=== PATIENT | male | born 1985 | race Caucasian/White ===

== ENCOUNTER 2025-02-14 10:28 | Observation (INO) ==
[2025-02-14 11:52] LABS: Basophils # (auto) 0.04 K/uL (0.00-0.20); Basophils % (auto) 0.3 %; Eosinophils # (auto) 0.32 K/uL (0.00-0.50); Eosinophils % (auto) 2.5 %; Hematocrit (blood only) 40.9 % (42.0-52.0); Hemoglobin 14.1 g/dl (14.0-18.0); Immature Granulocytes # (auto) 0.06 K/uL (0.01-0.20); Immature Granulocytes % (auto) 0.5 %; Lymphocytes # (auto) 2.19 K/uL (1.20-3.40); Lymphocytes % (auto) 17.3 %; Mean Corpuscular Hemoglobin 29.7 pg (25.0-34.0); Mean Corpuscular Hgb Conc 34.5 g/dL (32.0-36.0); Mean Corpuscular Volume 86.1 fL (80.0-100.0); Mean Platelet Volume 9.2 fL (9.4-12.4); Monocytes # (auto) 1.13 K/uL (0.11-0.59); Monocytes % (auto) 8.9 %; Neutrophils # (auto) 8.93 K/uL (1.40-6.50); Neutrophils % (auto) 70.5 %; Platelet Count 293 K/uL (130-400); RDW Coefficient of Variation 12.6 % (11.5-14.5); RDW Standard Deviation 39.3 fL (36.4-46.3); Red Blood Count 4.75 M/uL (4.70-6.10); White Blood Count 12.67 K/ul (4.8-10.8)
[2025-02-14 12:15] LABS: Albumin Globulin Ratio 1.6 (0.9-2); BUN Creatinine Ratio 12.1 (10-20); Bilirubin,Total 0.6 mg/dl (0.2-1.0); Calcium 9.9 mg/dl (8.6-10.3); Globulin 3.1 gm/dl (2.5-4.0); Potassium 4.2 mmol/L (3.5-5.1); Total Protein 8.1 gm/dl (6.0-8.3)
[2025-02-14] MEDS: OPTIRAY 320 100ml IV ONE (12:34)
--- NOTE | 2025-02-14 12:53 | CT Scan Report ---
CT pelvis w/IV con only CLINICAL HISTORY: Perirectal abscess. COMPARISON STUDY: No previous studies for comparison. TECHNIQUE: Axial images of the pelvis were obtained following intravenous injection of 94 cc of Optir ay 320 IV. Sagittal and coronal reformats were viewed. A dose lowering technique was utilized adherin g to the principles of ALARA. FINDINGS: There is a 1.6 x 1.4 x 1 cm rim-enhancing fluid collection within the medial fold of the ri ght buttock. There is moderate adjacent stranding and associated skin thickening. No soft tissue gas is present. This is suggestive of a right perianal fistula with abscess formation. No additional flui d collections are present. No supralevator abnormality is present. Caliber and wall thickness of visu alized small and large bowel are normal. The appendix is normal. There is no pelvic lymphadenopathy. No vascular abnormalities are identified by CT probable IMPRESSION: 1.6 x 1.4 x 1 cm rim-enhancing fluid collection within the medial fold of the right butt ock. This is suggestive of a right perianal fistula with abscess formation. Associated cellulitis. No additional fluid collections. ACT 112: Negative or not required by law. Electronically signed by: Jeffrey Bedolla M.D. 02/14/2025 12:51 PM
--- NOTE | 2025-02-14 14:02 | History & Physical Report ---
Date of Service February 14, 2025 Assessment & Plan (1) Perianal abscess: (2) Perianal fistula: Plan: 39 yo male with 3 day history of perirectal pain and swelling. History of I&D of right perirectal abscess in 2021. No blood in stools. CT scan with small 1.6 cm perianal abscess with associated cellulitis and question of possible fistula. Exam consistent with right buttock abscess with associated cellulitis extending to the perineum. Small indurated area of 2 cm. Not a lot of fluctuance. Discussed with patient given ct scan findings, recurrence and questions of possible fistula, we would recommend I&D in operating room. Will get him admitted start on IV cipro and flagyl , pain management as needed, antiemetics as needed, clear liquid diet for dinner and npo after midnight. Discussed with Dr. Riley who agrees with above. Plan Will admit patient to hospital and start on IV antibiotics given abscess and associated cellulitis History of Present Illness Chief Complaint: perirectal pain Primary Care Provider: NO PCP Trent is a 39 yo male who presented to ED with complaint of increasing perirectal pain. History of prior perirectal abscess drained at bedside at [facility] in 2021, abscess measured 3 x 4 cm at that time. States he started noticing some swelling and pain in the perirectal area Friday after some diarrhea. Night sweats but no fevers. No nausea or vomiting. Bowels have been loose no blood. No history of mucous or blood in stools. Has not had a colonoscopy. Allergies Allergy/AdvReac Type Severity Reaction Status Date / Time No Known Allergies Allergy Unverified 02/14/25 13:19 Home Medications Medication Instructions Recorded Confirmed Type Multi Mushrooms Supplement 1 cap PO DAILY 02/14/25 02/14/25 History guaifenesin 600 mg tablet, 600 mg PO TID PRN Congestion 02/14/25 02/14/25 History extended release 12 hr (Mucinex) Past Med/Surg History Problem List (Updated 02/14/25 @ 14:02 by Soco Chavis PA-C) Perianal fistula Perianal abscess Social History Smoking Status: Never smoker Feels Safe at Home: Yes Review of Systems Review of Systems: All systems reviewed & are unremarkable except as noted in HPI & below Physical Exam Constitutional: WD/WN, vitals as above cooperative and comfortable; no acute distress and not ill appearing Respiratory: normal respiratory effort, lungs clear to auscultation Cardiovascular: RRR, no murmur, no edema Gastrointestinal (Abdomen): Inspection/Auscultation: abdomen normal to inspection; abdomen not distended Percussion/Palpation: abdomen soft; abdomen nontender, no guarding and abdomen not rigid Right perianal abscess with induration and moderate cellulitis. minimal fluctuance on exam. External anal exam without fissure or visible fistula. no active drainage. Mildly tender to palpation. Skin: no rashes, warm and dry Psychiatric: A+Ox3, euthymic affect Results & Data Results & Data Vital Signs (Past 12 Hours) Vital Signs Temp Pulse Pulse Resp BP BP Pulse Ox 02/14/25 12:46 83 16 150/92 H 98 02/14/25 10:38 37 C 105 H 18 143/88 H 96 O2 Del Method 02/14/25 12:46 Room Air 02/14/25 10:38 Room Air Laboratory Results 02/14/25 Range/Units 11:25 WBC 12.67 H (4.8-10.8) K/ul RBC 4.75 (4.70-6.10) M/uL Hgb 14.1 (14.0-18.0) g/dl Hct 40.9 L (42.0-52.0) % MCV 86.1 (80.0-100.0) fL MCH 29.7 (25.0-34.0) pg MCHC 34.5 (32.0-36.0) g/dL RDW Std Deviation 39.3 (36.4-46.3) fL RDW Coeff of Alyssa 12.6 (11.5-14.5) % Plt Count 293 (130-400) K/uL MPV 9.2 L (9.4-12.4) fL Immature Gran % (Auto) 0.5 % Neut % (Auto) 70.5 % Lymph % (Auto) 17.3 % [place] % (Auto) 8.9 % Eos % (Auto) 2.5 % Baso % (Auto) 0.3 % Neut # (Auto) 8.93 H (1.40-6.50) K/uL Lymph # (Auto) 2.19 (1.20-3.40) K/uL [place] # (Auto) 1.13 H (0.11-0.59) K/uL Eos # (Auto) 0.32 (0.00-0.50) K/uL Baso # (Auto) 0.04 (0.00-0.20) K/uL Immature Gran # (Auto) 0.06 (0.01-0.20) K/uL Sodium 135 L (136-145) mmol/L Potassium 4.2 (3.5-5.1) mmol/L Chloride 102 (98-107) mmol/L Carbon Dioxide 27 (21-32) mmol/L Anion Gap 6 (3-11) BUN 13 (6-23) mg/dl Creatinine 1.07 (0.6-1.4) mg/dl Est Cr Clr Drug Dosing 117.0 ml/min eGFR 90.53 BUN/Creatinine Ratio 12.1 (10-20) Glucose 101 H (70-99(Fasting)) mg/dl Calcium 9.9 (8.6-10.3) mg/dl Total Bilirubin 0.6 (0.2-1.0) mg/dl AST 24 (13-39) U/L ALT 58 H (7-52) U/L Alkaline Phosphatase 61 (34-104) U/L Total Protein 8.1 (6.0-8.3) gm/dl Albumin 5.0 (3.4-5.0) gm/dl Globulin 3.1 (2.5-4.0) gm/dl Albumin/Globulin Ratio 1.6 (0.9-2) Diagnostic Findings CT pelvis w/IV con only CLINICAL HISTORY: Perirectal abscess. COMPARISON STUDY: No previous studies for comparison. TECHNIQUE: Axial images of the pelvis were obtained following intravenous injection of 94 cc of Optiray 320 IV. Sagittal and coronal reformats were viewed. A dose lowering technique was utilized adhering to the principles of ALARA. FINDINGS: There is a 1.6 x 1.4 x 1 cm rim-enhancing fluid collection within the medial fold of the right buttock. There is moderate adjacent stranding and associated skin thickening. No soft tissue gas is present. This is suggestive of a right perianal fistula with abscess formation. No additional fluid collections are present. No supralevator abnormality is present. Caliber and wall thickness of visualized small and large bowel are normal. The appendix is normal. There is no pelvic lymphadenopathy. No vascular abnormalities are identified by CT probable IMPRESSION: 1.6 x 1.4 x 1 cm rim-enhancing fluid collection within the medial fold of the right buttock. This is suggestive of a right perianal fistula with abscess formation. Associated cellulitis. No additional fluid collections. Code Status & VTE Plan VTE Prophylaxis Plan VTE Prophylaxis will be ordered: Yes
[2025-02-14] MEDS: ACETAMINOPHEN 1,000 MG/100 ML VIAL IV STA (14:04)
--- NOTE | 2025-02-14 15:00 | Emergency Department Note ---
Impression & Plan Perianal abscess, Perianal fistula ED Provider Note NAME: LATOYA Downs NOTESTINE AGE: 39 SEX: M : 1985 ARRIVES VIA: Walk-In INFORMANT: Patient, ED PROVIDER(S): Sheridan Navarrete MD CHIEF COMPLAINT: Fistula, abscess HPI: This is a 39-year-old male presenting for fistula/abscess. Patient notes that about 3 years ago he had a similar incident happening when she had a fistula develop in the peritoneal space. He required a procedure at bedside by general surgeon. He notes that this pain feels very similar. Started last night. He thinks it is filling up with fluid. Notes is painful to sit down removed. No fevers or chills. ROS: See above HPI for pertinent positives & negatives. A total of 10 systems reviewed and were otherwise negative. PAST MEDICAL HISTORY: See Below PAST SURGICAL HISTORY: See Below FAMILY HISTORY: See Below SOCIAL HISTORY: See Below HOME MEDICATIONS: See Below ALLERGIES: See Below VITALS: See Below PHYSICAL EXAMINATION: General: resting comfortably in no acute distress Head: Normocephalic and atraumatic Eyes: Normal inspection, extraocular muscles intact Ear, nose, throat: Normal external exam Neck: Normal range of motion Respiratory: speaking in full sentences, symmetric chest rise, no respiratory distress Cardiovascular: Regular rate/rhythm : Slight right-sided perirectal erythema/fluctuance Extremities: moves all extremities Neuro: The patient awake and alert, appropriately conversive, symmetric faces, no focal deficits MEDICAL DECISION MAKING: This is a 39-year-old male presenting for perirectal fistula/abscess. -Patient blood work reveals a slight leukocytosis 12.67. No signs of sepsis on vital signs otherwise. -Patient CT imaging does reveal a perianal fistula/abscess. -Discussed care with SUMANTH Garnett for general surgery who will admit the patient to their service for possible operative procedure tomorrow. -Patient admitted to surgical service Differential diagnosis: Perirectal, perianal fistula/abscess, cellulitis Diagnostics interpreted by me: ECG: None Cardiac Monitoring: An order was placed for continuous cardiac monitoring. The monitor shows a rate of 79 with sinus rhythm. Past Med/Surg History Problem List (Updated 02/14/25 @ 19:40 by Sheridan Navarrete MD) Perianal fistula (Acute) Perianal abscess (Acute) Social History Smoking Status: Never smoker Hx Alcohol Use: No Hx Substance Use: No Preferred Language: Croatian Communication Ability: Effective Electrician Ship Required: No Beliefs That Will Affect Care: None Current Living Situation: Family Other Information That Helps Us Care for You: No Feels Safe at Home: Yes Safety Concerns: Feels Safe At This Time Assistive Devices: Glasses Allergies Allergies Allergy/AdvReac Type Severity Reaction Status Date / Time No Known Allergies Allergy Unverified 02/14/25 13:19 Home Meds Home Medications Medication Instructions Recorded Confirmed Multi Mushrooms Supplement 1 cap PO DAILY 02/14/25 02/14/25 guaifenesin 600 mg tablet, 600 mg PO TID PRN Congestion 02/14/25 02/14/25 extended release 12 hr (Mucinex) Results & Data (ED) Vital Signs Vital Signs - 24 hr 02/14/25 10:38 02/14/25 12:46 02/14/25 14:06 Temperature 37 C Temperature Source Temporal Artery Scan Pulse Rate 105 H Pulse Rate [Right Finger] 83 88 Respiratory Rate 18 16 18 Respiratory Effort / Characteristics Non-Labored Non-Labored Spontaneous Non-Labored Spontaneous Respiratory Depth Normal Normal Normal Respiratory Pattern Regular Regular Regular Blood Pressure 143/88 H Blood Pressure [Right Arm] 150/92 H 140/84 Blood Pressure Mean 106 Blood Pressure Mean [Right Arm] 111 102 Pulse Oximetry 96 98 97 Oxygen Delivery Method Room Air Room Air Room Air Sepsis Recent Fever Within 48 Hours No Sepsis New/Unexplained Change in Mental Status N/A Sepsis Action Taken by Nursing No Action Required Laboratory Data 02/14/25 11:25 02/14/25 11:25 Lab Results 02/14/25 Range/Units 11:25 WBC 12.67 H (4.8-10.8) K/ul RBC 4.75 (4.70-6.10) M/uL Hgb 14.1 (14.0-18.0) g/dl Hct 40.9 L (42.0-52.0) % MCV 86.1 (80.0-100.0) fL MCH 29.7 (25.0-34.0) pg MCHC 34.5 (32.0-36.0) g/dL RDW Std Deviation 39.3 (36.4-46.3) fL RDW Coeff of Alyssa 12.6 (11.5-14.5) % Plt Count 293 (130-400) K/uL MPV 9.2 L (9.4-12.4) fL Immature Gran % (Auto) 0.5 % Neut % (Auto) 70.5 % Lymph % (Auto) 17.3 % [place] % (Auto) 8.9 % Eos % (Auto) 2.5 % Baso % (Auto) 0.3 % Neut # (Auto) 8.93 H (1.40-6.50) K/uL Lymph # (Auto) 2.19 (1.20-3.40) K/uL [place] # (Auto) 1.13 H (0.11-0.59) K/uL Eos # (Auto) 0.32 (0.00-0.50) K/uL Baso # (Auto) 0.04 (0.00-0.20) K/uL Immature Gran # (Auto) 0.06 (0.01-0.20) K/uL Sodium 135 L (136-145) mmol/L Potassium 4.2 (3.5-5.1) mmol/L Chloride 102 (98-107) mmol/L Carbon Dioxide 27 (21-32) mmol/L Anion Gap 6 (3-11) BUN 13 (6-23) mg/dl Creatinine 1.07 (0.6-1.4) mg/dl Est Cr Clr Drug Dosing 117.0 ml/min eGFR 90.53 BUN/Creatinine Ratio 12.1 (10-20) Glucose 101 H (70-99(Fasting)) mg/dl Calcium 9.9 (8.6-10.3) mg/dl Total Bilirubin 0.6 (0.2-1.0) mg/dl AST 24 (13-39) U/L ALT 58 H (7-52) U/L Alkaline Phosphatase 61 (34-104) U/L Total Protein 8.1 (6.0-8.3) gm/dl Albumin 5.0 (3.4-5.0) gm/dl Globulin 3.1 (2.5-4.0) gm/dl Albumin/Globulin Ratio 1.6 (0.9-2) Administered Medications Metronidazole (Flagyl) 500 mg in 100 mls @ 100 mls/hr IV Q8H ADILSON; Protocol Stop: 02/18/25 17:43 Last Admin: 02/14/25 18:17 Dose: 100 mls/hr Documented By: REMYK Ciprofloxacin (Cipro / D5w) 400 mg in 200 mls @ 100 mls/hr IV Q12H ADILSON; Protocol Stop: 02/18/25 17:43 Last Admin: 02/14/25 18:17 Dose: 100 mls/hr Documented By: TBK Ketorolac Tromethamine (Ketorolac 30 Mg/Ml Vial) 30 mg IV Q6H PRN PRN Reason: Mild-Mod Pain (Scale 1-6) Stop: 02/19/25 17:43 Last Admin: 02/14/25 18:17 Dose: 30 mg Documented By: TBK Discontinued Medications Acetaminophen (Ofirmev) 1,000 mg in 100 mls @ 400 mls/hr IV NOW STA Stop: 02/14/25 14:13 Last Infusion: 02/14/25 14:33 Dose: Infused Documented By: Admin: 02/14/25 14:04 Dose: 400 mls/hr Documented By: PAO Ioversol (Optiray 320 100ml) 94 ml IV ONCE ONE Stop: 02/14/25 12:34 Last Admin: 02/14/25 12:34 Dose: 94 ml Documented By: CYRIL Imaging Data Radiologist's Impression: Pelvis CT 02/14/25 11:20 CT pelvis w/IV con only CLINICAL HISTORY: Perirectal abscess. COMPARISON STUDY: No previous studies for comparison. TECHNIQUE: Axial images of the pelvis were obtained following intravenous injection of 94 cc of Optiray 320 IV. Sagittal and coronal reformats were viewed. A dose lowering technique was utilized adhering to the principles of ALARA. FINDINGS: There is a 1.6 x 1.4 x 1 cm rim-enhancing fluid collection within the medial fold of the right buttock. There is moderate adjacent stranding and associated skin thickening. No soft tissue gas is present. This is suggestive of a right perianal fistula with abscess formation. No additional fluid collections are present. No supralevator abnormality is present. Caliber and wall thickness of visualized small and large bowel are normal. The appendix is normal. There is no pelvic lymphadenopathy. No vascular abnormalities are identified by CT probable IMPRESSION: 1.6 x 1.4 x 1 cm rim-enhancing fluid collection within the medial fold of the right buttock. This is suggestive of a right perianal fistula with abscess formation. Associated cellulitis. No additional fluid collections. ACT 112: Negative or not required by law. Electronically signed by: Jeffrey Bedolla M.D. 02/14/2025 12:51 PM Discharge Plan Visit Data Chief Complaint: Rectal Pain Stated Complaint: ANAL FISTULA ED Provider: Sheridan Navarrete Discharge Problem: Perianal abscess, Perianal fistula Patient Disposition: Admitted As Inpatient Discharge Instructions Interventions: ED Discharge Assessment Last Done: 02/14/25 17:18
[2025-02-14] MEDS ORDERED: ONDANSETRON INJ 2 MG/ML 2 ML VIAL IV PRN (17:44)
[2025-02-14] MEDS: KETOROLAC 30 MG/ML VIAL IV PRN (18:17)
[2025-02-14] MEDS: metroNIDAZOLE 500 MG/100 ML BAG IV SCH (18:17)
[2025-02-14] MEDS: CIPROFLOXACIN / D5W 400 MG/200 ML BAG IV SCH (18:17)
[2025-02-14] MEDS: guaiFENesin/DEXTROM SYRUP 200MG/20MG 10ML UDC PO PRN (20:13)
[2025-02-14] MEDS: CALCIUM CARBONATE 500 MG CHEWABLE TAB PO PRN (20:13)
[2025-02-14] MEDS: COUGH DROP (SUGAR FREE) LOZ 24 LOZ/1 BOX BUCCAL ONE (22:29)
--- NOTE | 2025-02-15 08:04 | History & Physical Bridge Note ---
Date of Service February 15, 2025 History & Physical Bridge Note I have examined the patient, reviewed the History & Physical and in the interval since the performance of the History & Physical I have noted the following changes of clinical significance: no changes noted
[2025-02-15] MEDS ORDERED: LIDOCAINE 2% 2 ML VIAL/AMP(20MG/ML) INFIL ONE (08:37)
[2025-02-15] MEDS ORDERED: fentaNYL citrate PF 100 MCG/2 ML VIAL ONE ×2 (08:37→09:46)
[2025-02-15] MEDS ORDERED: PROPOFOL IV EMULSION 10 MG/ML 20 ML VIAL IV ONE (08:37)
[2025-02-15] MEDS ORDERED: ONDANSETRON INJ 2 MG/ML 2 ML VIAL ONE (08:37)
[2025-02-15] MEDS ORDERED: ATROPINE SULFATE 0.1 MG/ML 10ML SYR IV PRN (08:56)
[2025-02-15] MEDS ORDERED: fentaNYL citrate PF 100 MCG/2 ML VIAL IV PRN (08:56)
[2025-02-15] MEDS ORDERED: ONDANSETRON INJ 2 MG/ML 2 ML VIAL IV PRN ×2 (08:56→10:42)
[2025-02-15] MEDS ORDERED: ePHEDrine sulfate 50 MG/ML AMP IV PRN (08:56)
--- NOTE | 2025-02-15 09:01 | Anesthesiology Consultation ---
Date of Service February 15, 2025 Assessment & Plan Chart Review Chart Review: Acceptable Risk for Surgery and Patient NOT seen in Pre Admission Testing Consults Requested none ASA ASA2 Proposed Anesthesia Anesthesia Type: General Risk / Benefits Reviewed With: PT / POA / Parent / Guardian, Accepts Plan and Informed Consent Obtained History Surgery Operation Date: 02/15/25 08:25 Proposed Procedures p Incision and Drainage of Perianal Abscess - Fer Riley MD Height/Weight Height: 6 ft 1 in Weight: 103.2 kg Allergies Allergy/AdvReac Type Severity Reaction Status Date / Time No Known Allergies Allergy Unverified 02/14/25 13:19 Medications Home Medications Medication Instructions Recorded Confirmed Last Taken Multi Mushrooms Supplement 1 cap PO DAILY 02/14/25 02/14/25 02/13/25 guaifenesin 600 mg tablet, 600 mg PO TID PRN Congestion 02/14/25 02/14/25 02/13/25 extended release 12 hr (Mucinex) Active Medications Generic Name Dose Route Start Last Admin Trade Name Freq PRN Reason Stop Dose Admin Calcium Carbonate 500 mg 02/14/25 17:53 02/14/25 20:13 Calcium Carbonate 500 Mg Chewable Tab PO 03/16/25 17:52 500 mg Q8H PRN Administration Indigestion Guaifenesin/Dextromethorphan 10 ml 02/14/25 17:44 02/14/25 20:13 Guaifenesin/Dextrom Syrup 200mg/20mg 10ml Udc PO 03/16/25 17:43 10 ml Q6H PRN Administration Cough Metronidazole 500 mg in 100 mls @ 100 mls/hr 02/14/25 17:44 02/15/25 04:00 Flagyl IV 02/18/25 17:43 Infused Q8H ADILSON Infusion Protocol Ciprofloxacin 400 mg in 200 mls @ 100 mls/hr 02/14/25 17:44 02/15/25 07:43 Cipro / D5w IV 02/18/25 17:43 Infused Q12H ADILSON Infusion Protocol Ketorolac Tromethamine 30 mg 02/14/25 17:44 02/14/25 18:17 Ketorolac 30 Mg/Ml Vial IV 02/19/25 17:43 30 mg Q6H PRN Administration Mild-Mod Pain (Scale 1-6) NPO Date Last Intake of Fluids: 02/14/25 Time Last Intake of Fluids: 22:00 Date Last Intake of Solids: 02/14/25 Time Last Intake of Solids: 19:00 Exercise / Class Metabolic Activity 1 > 8 Run/Swim/Ski/Tennis Past Anesthesia History No Hx of Anesthesia Complications and No Family Hx of Anesthesia Complications History of PONV No Hx of PONV and No Hx of Motion Sickness Social History Smoking Status: Never smoker Hx Alcohol Use: No Hx Substance Use: No Review of Systems ROS Unobtainable: All systems reviewed & are unremarkable except as noted in HPI & below Physical Exam Vital Signs Last Vital Signs Temp 37 C 02/15/25 07:55 Pulse 102 H 02/15/25 07:55 Resp 20 02/15/25 07:55 BP 122/79 02/15/25 07:55 Pulse Ox 96 02/15/25 07:55 O2 Del Method Room Air 02/15/25 07:55 ENMT Mouth: no TMJ abnormality Thyromental Distance: > or= 3.5 Finger Breadths Mallampati Class: II Neck normal visual inspection and trachea midline; neck extension not limited Respiratory normal respiratory effort Auscultation: lungs clear to auscultation bilaterally Cardiovascular Rate/Rhythm: regular rate and regular rhythm Heart Sounds: no murmur Musculoskeletal Spine: normal cervical ROM Extremities: full ROM of extremities Neurologic moves all extremities Psychiatric Orientation: alert and oriented x 3 Testing Laboratory Results 02/14/25 11:25 02/14/25 11:25 Electrocardiogram Date: 02/15/25 Findings: + NSR @
[2025-02-15] MEDS ORDERED: MIDAZOLAM HCL 1 MG/ML 2ML VIAL ONE (09:09)
[2025-02-15] MEDS: ceFAZolin 2000MG 2,000 MG/15 ML SYR IV ONE (09:35)
[2025-02-15] MEDS ORDERED: KETAMINE HCL 10MG/ML SYR ONE (09:37)
[2025-02-15] MEDS: BUPIVACAINE/EPINEPHRINE 0.5% MPF 1:200,000 30 ML VIAL ONE (09:45)
--- NOTE | 2025-02-15 10:00 | Operative Report ---
Post Operative Report Pre & Post Diagnosis Operation Date: 02/15/25 08:25 Perirectal abscess, no fistula I identified the patient and participated in the time-out.: Yes Procedure Operation Date: 02/15/25 08:25 I&D of perirectal abscess, complicated Surgeon Fer Riley MD Joint Terminal Attack Controller None Estimated Blood Loss 10 Findings Consistent with Post-Op Diagnosis Specimens Intraoperative cultures taken Drains None Anesthesia Type General Complications none Disposition Accompanied Patient To Recovery: No Disposition: Recovery Room Indications Is a 39 male with current perirectal abscess. He was admitted and placed on IV antibiotics. There is a question of a fistula on CT scan. He was taken to the OR for exam under anesthesia with drainage of his abscess and possible fistulotomy. Description of Procedure The patient was taken to the OR and underwent excellent general anesthesia. They were placed in the lithotomy position and prepped and draped in normal fashion. A good exam under anesthesia was done, no fistula was present. A incision was made through the perirectal abscess at the 10 o'clock position. The abscess was opened widely and septations broken down. Intra-op cultures were then taken. This was therefore opened and drained completely. The cavity was then irrigated. Marcaine was then used for a local block. The wound was then packed with Iodoform gauze and a sterile dressing applied.. They tolerated procedure well without complications. They will be recovered in the recovery room. I attest to the content of the Intraoperative Record and any orders documented therein. Any exceptions are noted below.
--- NOTE | 2025-02-15 10:20 | Anesthesiology Progress Note ---
Date of Service February 15, 2025 Anesthesia Post Procedure Vital Signs Vital Signs: Temp Pulse Pulse Pulse Resp BP BP 02/15/25 10:15 90 14 125/78 02/15/25 10:05 89 15 117/62 02/15/25 09:57 36.1 C L 93 H 16 115/57 L 02/15/25 07:55 37 C 102 H 20 122/79 02/15/25 07:32 37.0 C 84 16 108/71 02/14/25 23:45 02/14/25 19:03 37.0 C 79 18 02/14/25 18:00 36.8 C 93 H 18 02/14/25 17:18 36.6 C 02/14/25 17:17 97 H 18 02/14/25 14:06 88 18 02/14/25 12:46 83 16 02/14/25 10:38 37 C 105 H 18 143/88 H BP Pulse Ox O2 Del Method O2 Flow Rate 02/15/25 10:15 100 Oxymask 6 02/15/25 10:05 100 Oxymask 6 02/15/25 09:57 99 Oxymask 6 02/15/25 07:55 96 Room Air 02/15/25 07:32 94 Room Air 02/14/25 23:45 Room Air 02/14/25 19:03 130/81 96 Room Air 02/14/25 18:00 131/81 96 Room Air 02/14/25 17:18 02/14/25 17:17 138/80 97 Room Air 02/14/25 14:06 140/84 97 Room Air 02/14/25 12:46 150/92 H 98 Room Air 02/14/25 10:38 96 Room Air Pain Intensity Rectal: Pain Intensity: 2 Transfer of Care Handoff Completed per policy Notes Mental Status: alert / awake / arousable Patient Amnestic to Procedure: Yes Nausea / Vomiting: adequately controlled Pain: adequately controlled Airway Patency, RR, SpO2: stable & adequate BP & HR: stable & adequate Hydration State: stable & adequate Anesthetic Complications: no major complications apparent and Pt Satisfied with anesthetic care
[2025-02-15] MEDS ORDERED: oxyCODONE/ACETAMINOPHEN 5mg/325mg TAB PO PRN ×2 (10:42)
[2025-02-15] MEDS ORDERED: PROMETHAZINE 12.5 MG/50.5 ML BAG IV PRN (10:42)
[2025-02-15] MEDS: FAMOTIDINE/PF 20 MG/2 ML VIAL IV ONE (10:44)
[2025-02-15] MEDS: DOCUSATE SODIUM 100 MG CAP PO SCH (17:38)
[2025-02-15] MEDS: ACETAMINOPHEN 1,000 MG/100 ML VIAL IV PRN (19:47)
--- NOTE | 2025-02-15 21:38 | Electrocardiogram Report ---
Test Reason : Blood Pressure : */* mmHG Vent. Rate : 90 BPM Atrial Rate : 90 BPM P-R Int : 150 ms QRS Dur : 84 ms QT Int : 338 ms P-R-T Axes : 47 59 39 degrees QTcB Int : 413 ms Normal sinus rhythm Normal ECG No previous ECGs available Confirmed by Graeme Sr ([id number]) on 02/15/2025 9:38:15 PM Referred By: REFERRED SELF Confirmed By: Graeme Sr
[2025-02-15] MEDS: guaiFENesin/CODEINE 100MG/10MG 5ML UDC PO PRN (23:02)
[2025-02-16 02:55] VITALS: TEMP 97.7
[2025-02-16 07:51] VITALS: BP 115/74; PULSE 77; RESP 18; O2SAT 95
[2025-02-16] MEDS: MoRPHine SULFATE 2 MG/ML CARP IV PRN (10:32)
--- NOTE | 2025-02-17 10:56 | Discharge Summary ---
Date of Service February 17, 2025 Admission HPI Per Admitting Provider Trent is a 39 yo male who presented to ED with complaint of increasing perirectal pain. History of prior perirectal abscess drained at bedside at [facility] in 2021, abscess measured 3 x 4 cm at that time. States he started noticing some swelling and pain in the perirectal area Friday after some diarrhea. Night sweats but no fevers. No nausea or vomiting. Bowels have been loose no blood. No history of mucous or blood in stools. Has not had a colonoscopy. Principal Diagnosis Perirectal abscess Discharge Data Allergies Allergy/AdvReac Type Severity Reaction Status Date / Time No Known Allergies Allergy Unverified 02/14/25 13:19 Consultations 02/14/25 14:31 ED Decision to Admit Stat Procedures Performed Operation Date: 02/15/25 08:25 Actual Procedures p Incision and Drainage of Perianal Abscess(Not Applicable) - Fer Riley MD Ordered Studies 02/14/25 11:20 CT pelvis w/IV con only Stat Hospital Course (1) Perianal abscess: Patient admitted to hospital from emergency department and started on IV Cipro and flagyl. Given concern of possible perirectal fistula decision was made to do I&D in the operating room instead of at bedside. Patient was taken to operating room on 02/15/25 and I&D was performed. No fistula was seen on examination. Patient tolerated procedure without difficulty and was transferred back to med/surg for postop care. Diet advanced as tolerated, IV Cipro/flagyl was continued and pain maangement as needed. POD # 1 avss, pain controlled. Dressing/packing was removed prior to discharge. Patient sent home with 1 week of PO Cipro and flagyl and advised for surgical follow-up in 2 weeks. Total Time Total Time Spent Total Time Spent (In Minutes): 15 minutes Discharge Plan Discharge Items Patient Disposition: Home - Self-Care Reason For Visit: PERIRECTAL ABSCESS Discharge Diagnosis: Perirectal abscess Activity: Per Instructions section Non-emergency contact: Primary Care Provider and Surgeon Call non-emergency contact if: you have any medication questions, your pain is not controlled, your pain is concerning for you, you have a fever, your temperature is above 101, your wound has increased redness, your wound has increased drainage and your wound pain has increased Follow-up/Referrals: Fer Riley MD [Physician] - (2 week follow -up) PCP,NO [Primary Care Provider] - Diet: Regular Addtl Attending Provider Instructions: ACTIVITY RECOMMENDATIONS: * No heavy lifting for 1 week. MEDICATIONS: Resume previous medications unless instructed otherwise by your surgeon. * [place] 5/325 mg 1 every 4-6 hours, as needed for moderate to severe pain * Colace 100 mg 2 times per day * Extra Strength Tylenol 500 - 1000 mg every 4 hours, as needed for pain * Ibuprofen 600 mg every 6 hours, as needed for pain (take with food) * Take antibiotics as prescribed for 1 week Cipro 500 mg twice a day Flagyl 500 mg three times a day SPECIAL CARE INSTRUCTIONS: * Remove dressings and start sitz baths in A.M. unless you have a bowel movement tonight, then remove dressings and start sitz baths at that time. * Shower or sitz bath 3 times per day and after each bowel movement. * Call the surgeon's office with any questions or concerns - (ex. temperature higher than 101 degrees F, excessive bleeding or pain). FOLLOW UP VISIT: If not already scheduled, please call the office to schedule a two week follow- up appointment. Office number . Pending Studies at Discharge: Yes (final wound culture) Stand-Alone Forms: My [facility], Work/School Release, Smoking Cessation Medications and DC Order Prescriptions: New metronidazole 500 mg tablet 500 mg PO TID Qty: 21 0RF ciprofloxacin HCl [Cipro] 500 mg tablet 500 mg PO BID Qty: 14 0RF hydrocodone-acetaminophen 5-325 mg tablet 1 tab PO Q6H PRN (Reason: pain) Qty: 10 0RF Continued guaifenesin [Mucinex] 600 mg Tablet Extended Release 12hr 600 mg PO TID PRN (Reason: Congestion) Multi Mushrooms Supplement 1 cap PO DAILY Discharge Orders: Discharge Order (Routine); Ordered 02/16/25 Ordered By: Soco Chavis Admission Data Admit Date/Time: 02/14/25 14:38 Attending Provider: Fer Riley Admit Provider: Fer Riley Primary Care Provider: PCP,NO Other Providers: Fer Riley Other Interventions: Discharge Summary Assessment (RN) Last Done: 02/16/25 13:09
== END 2025-02-16 14:32 | disposition home or self-care (01) ==
LOC: ED 10:28 → 3N 10:28